=== PATIENT | female | born 1970 | race African-American/Black ===

== ENCOUNTER 2016-10-10 08:51 | Emergency (ER) | payer OTHER ==
--- NOTE | ~2016-10-10 | EKG ---
PATIENT: TRELL BARNETT UNIT #: [id number] Ventricular Rate: 66 BPM Atrial Rate: 66 BPM P-R Interval: 138 ms QRS Duration: 80 ms Q-T Interval: 418 ms QTC Calculation(Bezet): 438 ms P [place]: 52 degrees Calculated R [place]: 19 degrees Calculated T [place]: 20 degrees Diagnosis Line: Normal sinus rhythm with sinus arrhythmia Diagnosis Line: Normal ECG Diagnosis Line: No previous ECGs available Diagnosis Line: Confirmed by DARCI SERRANO MD ([id number]) on 10/10/2016 Diagnosis Line: 10:48:30 PM INTERPRETING MD: ZACH DINERO
--- NOTE | ~2016-10-10 | CR72 ---
[facility] A Service of [facility] & [facility] / [facility] RADIOLOGY TEXT RESULTS PATIENT: TRELL BARNETT LOCATION: [facility] : 72 UNIT #: [id number] AGE: [address]: Reynaldo Lee MD SEX: F ORDER DR: [id number] [facility] [place] [address] [place], [place] [address] [id number] E MR#: [id number] Acc #: [id number] NAME: TRELL BARNETT : 1970 SEX: F STUDY DATE/TIME: 10/10/2016 9:07 UNIT: [facility] ROOM: STUDY DESCRIPTION: CR Chest Single View Portable Attending Physician: Reynaldo Lee M.D. Ordering Physician: Reynaldo Lee M.D. Primary Care Physician: Loly Ramos MEDICAL IMAGING REPORT This report is preliminary unless electronic signature is present EXAM Portable chest x-ray, 10/10/16 HISTORY Chest pain today FINDINGS AP radiograph of chest is presented. COMPARISON: 05/19/14. Heart and mediastinum normal in size and contour. The lungs are well inflated and clear. No pleural effusion or pneumothorax. No suspicious nodule. Bony structures unremarkable. Dictated by... Lukasz Mckeon M.D. THIS IS AN ELECTRONICALLY VERIFIED REPORT Lukasz Mckeon M.D. at 10/15/2016 6:37 PM Adithya TD: 10/10/2016 10:07 JOB #: [id number] MEDICAL IMAGING REPORT Page 1 of 1 COPY
[~2016-10-10 08:51] MED LIST: ATIVAN PO; CAPOZIDE PO; CITALOPRAM HBR40 M1 PO; HYDROCHLOROTHIA25 MG PO; IRON325 ( 652 PO; LOSARTAN POTASS50 MG PO; OMEPRAZOLE40 M1 PO; VITAMIN C500 MG PO
[2016-10-10 08:58] LABS: BASOPHIL% 0.5 % (0-2.5); EOSINOPHIL# 0.1 X10e3 (0-0.7); EOSINOPHIL% 0.9 % (0.0-7.0); HEMATOCRIT 35.4 % (35.0-45.0); HEMOGLOBIN 11.7 gm/dL (12.0-16.0); LYMPHOCYTE# 1.3 X10e3 (1.0-3.5); LYMPHOCYTE% 19.3 % (17.0-45.0); MEAN CELL VOLUME 90.9 FL (83-96); MEAN CORPUSCULAR HEMOGLOBIN 30.2 PG (28-34); MEAN CORPUSCULAR HGB CONC 33.2 g/dL (30-36); MEAN PLATELET VOLUME 9.1 FL (6.5-11.5); MONOCYTE# 0.6 X10e3 (0-1.0); MONOCYTE% 9.3 % (3.0-12.0); NEUTROPHIL# 4.8 X10e3 (1.5-7.1); PLATELET COUNT 238 X10e3 (140-420); RED BLOOD COUNT 3.89 X10e (3.90-5.30); RED CELL DISTRIBUTION WIDTH 13.7 % (11.0-15.5); WHITE BLOOD COUNT 6.9 X10e3 (4.0-10.5)
[2016-10-10 08:59] LABS: DIFF IND NO
[2016-10-10 09:08] LABS: POC - CKMB 2.6 ng/mL (0.0-7.9); POC - TROPONIN <0.05 ng/mL (<=0.05)
[2016-10-10 09:09] LABS: PARTIAL THROMBOPLASTIN TIME 27.8 SECONDS (23.5-31.3); PROTHROMBIN TIME (PATIENT) 10.6 SECONDS (9.6-11.5)
[2016-10-10 09:24] LABS: ALBUMIN SERUM 3.6 g/dL (3.5-5.0); BILIRUBIN, DIRECT 0.1 mg/dL (0.0-0.2); BILIRUBIN,INDIRECT 0.6 mg/dL (0.0-0.9); BILIRUBIN,TOTAL 0.7 mg/dL (0.2-2.0); BUN/CREATININE RATIO 17.14; CALCIUM SERUM 8.7 mg/dL (8.4-10.2); CREATININE SERUM 0.7 mg/dL (0.6-1.4); GLOM FILT RATE Estimated 122.1 mL/min (>60); POTASSIUM 3.8 mmol/L (3.5-5.1); PROTEIN TOTAL SERUM 7.6 g/dL (6.0-8.3)
== END 2016-10-10 10:30 | disposition home or self-care (01) ==
LOC: CED 08:51
PROVIDERS: Emergency Medicine
DX: R07.89 Other chest pain (principal); I10 Essential (primary) hypertension
CPT/HCPCS: 36415; 71010; 80048; 80076; 82553; 84484; 85025; 85610; 85730; 93005; 99284